=== PATIENT | male | born 1990 | race Caucasian/White ===

== ENCOUNTER 2016-09-04 18:52 | Emergency (ER) | payer SELFPAY ==
[~2016-09-04] VITALS: Ht 185.4 cm; Wt 105.0 kg
[~2016-09-04 18:52] MED LIST: NAPR500 PO
[2016-09-04 19:01] VITALS: BP 133/79; PULSE 76; RESP 16; TEMP 98.9; O2SAT 99
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
[2016-09-04] MEDS ORDERED: ROBA750T PO (20:00)
[2016-09-04] MEDS ORDERED: IBUP-232 PO (20:00)
== END 2016-09-04 20:14 | disposition home or self-care (01) ==
LOC: PHEFT 18:52
DX: S96.911A Strain of unspecified muscle and tendon at ankle and foot level, right foot, initial encounter (principal); Y93.67 Activity, basketball; F90.9 Attention-deficit hyperactivity disorder, unspecified type; F31.9 Bipolar disorder, unspecified; F17.200 Nicotine dependence, unspecified, uncomplicated
CPT/HCPCS: 99283

== ENCOUNTER 2016-12-20 18:42 | Emergency (ER) | payer SELFPAY ==
[~2016-12-20 18:42] MED LIST changes: +IBUP-232 PO; -NAPR500 PO; +ROBA750T PO
[2016-12-20 18:50] VITALS: BP 148/82; PULSE 74; RESP 18; TEMP 97.9; O2SAT 98
[2016-12-20] MEDS ORDERED: SODIUM CHLOR 0.9% 1000 ML INJ 1,000 ML IV SCH (19:00)
[2016-12-20 19:15] VITALS: BP 144/77; PULSE 68; RESP 16; O2SAT 98
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
[2016-12-20 19:50] VITALS: BP 144/77; PULSE 68; RESP 16; O2SAT 98
[2016-12-20 20:00] LABS: AUTOMATED NEUTROPHIL # 2.8 TH/MM3 (1.8-7.7); BASOPHIL # 0.1 TH/MM3 (0-0.2); BASOPHIL % 1.7 % (0.0-2.0); EOSINOPHIL # 0.2 TH/MM3 (0-0.4); EOSINOPHIL % 3.2 % (0.0-4.0); HEMATOCRIT 43.8 % (39.0-51.0); HEMO FLAGS DIFF FINAL; LYMPH % 33.5 % (9.0-44.0); LYMPHOCYTE # 1.9 TH/MM3 (1.0-4.8); MEAN CELL VOLUME 84.5 FL (80.0-100.0); MEAN CORPUSCULAR HEMOGLOBIN 28.1 PG (27.0-34.0); MEAN CORPUSCULAR HGB CONC 33.3 % (32.0-36.0); MONO % 11.1 % (0.0-8.0); NEUT % 50.5 % (16.0-70.0); PLATELET COUNT 185 TH/MM3 (150-450); RED BLOOD COUNT 5.19 MIL/MM3 (4.50-5.90); WHITE BLOOD COUNT 5.6 TH/MM3 (4.0-11.0)
[2016-12-20 20:07] LABS: CHLORIDE 103 MEQ/L (98-107); POTASSIUM 3.8 MEQ/L (3.5-5.1); SODIUM (NA) 137 MEQ/L (136-145)
[2016-12-20 20:10] LABS: ANION GAP 6 MEQ/L (5-15); BICARBONATE 28.5 MEQ/L (21.0-32.0); MAGNESIUM 2.1 MG/DL (1.5-2.5)
[2016-12-20 20:11] LABS: BLOOD UREA NITROGEN 13 MG/DL (7-18)
[2016-12-20 20:13] LABS: ALT (GPT) 30 U/L (12-78)
[2016-12-20 20:14] LABS: AST (GOT) 23 U/L (15-37); GLOMERULAR FILTRATION RATE 82 ML/MIN (>89)
[2016-12-20 20:15] LABS: TOTAL BILIRUBIN ADULT 0.4 MG/DL (0.2-1.0)
[2016-12-20 20:16] LABS: ALKALINE PHOSPHATASE 110 U/L (45-117)
[2016-12-20 20:50] VITALS: BP 141/77; PULSE 70; RESP 16; O2SAT 99
--- NOTE | 2016-12-21 09:30 | EKG ---
Date Performed: 12/20/2016 Time Performed: 18:49:55 PTAGE: 26 years EKG: Sinus rhythm WITH SINUS ARRHYTHMIA NORMAL ECG PREVIOUS TRACING : 12/19/2012 19.28 DOCTOR: Herb Brennan Interpretating Date/Time 12/21/2016 09:28:49
== END 2016-12-20 21:16 | disposition home or self-care (01) ==
LOC: PHED 18:42
DX: R07.89 Other chest pain (principal); R42 Dizziness and giddiness; I49.9 Cardiac arrhythmia, unspecified; F17.200 Nicotine dependence, unspecified, uncomplicated; Z87.39 Personal history of other diseases of the musculoskeletal system and connective tissue; Z86.59 Personal history of other mental and behavioral disorders
CPT/HCPCS: 80053; 83735; 84484; 85025; 93005; 96360; 99284; J7030

== ENCOUNTER 2017-01-04 17:26 | Emergency (ER) | payer OTHER ==
[~2017-01-04] VITALS: Ht 190.5 cm; Wt 107.0 kg
[2017-01-04 17:31] VITALS: BP 144/78; PULSE 76; RESP 16; TEMP 100.3; O2SAT 96
== END 2017-01-04 19:40 | disposition left against medical advice (07) ==
LOC: PHED 17:26 → PHEFT 19:40
DX: Z53.21 Procedure and treatment not carried out due to patient leaving prior to being seen by health care provider (principal)
CPT/HCPCS: 99281

== ENCOUNTER 2017-03-13 04:22 | Emergency (ER) | payer SELFPAY ==
[~2017-03-13] VITALS: Ht 193 cm; Wt 108.9 kg
[2017-03-13 04:35] VITALS: BP 138/86; PULSE 71; RESP 16; TEMP 98.5; O2SAT 99
[2017-03-13] MEDS ORDERED: IBUP1TAB7 PO (05:02)
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
[2017-03-13] MEDS ORDERED: IBUPROFEN 800 MG TAB PO ONE (05:15)
[2017-03-13 05:17] VITALS: BP 147/93
[2017-03-13 05:57] VITALS: RESP 16
--- NOTE | 2017-03-13 10:54 | EKG ---
Date Performed: 03/13/2017 Time Performed: 04:37:45 PTAGE: 27 years EKG: Sinus rhythm NORMAL ECG NO PREVIOUS TRACING DOCTOR: Jerel Yun Interpretating Date/Time 03/13/2017 10:52:55
== END 2017-03-13 05:17 | disposition home or self-care (01) ==
LOC: PHED 04:22
DX: R07.89 Other chest pain (principal); F17.210 Nicotine dependence, cigarettes, uncomplicated
CPT/HCPCS: 93005; 99283

== ENCOUNTER 2017-05-27 05:45 | Emergency (ER) | payer SELFPAY ==
[~2017-05-27] VITALS: Ht 193 cm; Wt 110.5 kg
[~2017-05-27 05:45] MED LIST changes: -IBUP-232 PO; +IBUP1TAB7 PO; -ROBA750T PO
[2017-05-27 05:51] VITALS: BP 156/89; PULSE 70; RESP 15; TEMP 98.4; O2SAT 99
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
--- NOTE | 2017-05-27 06:10 | RADRPT ---
EXAM DATE/TIME: 05/27/2017 06:00 [facility] COMPARISON: No previous studies available for comparison. INDICATIONS : Chest pain. MEDICAL HISTORY : None. SURGICAL HISTORY : None. ENCOUNTER: Initial ACUITY: 1 day PAIN SCORE: 4/10 LOCATION: Left chest FINDINGS: Portable AP view of the chest demonstrates a normal-sized cardiac silhouette. No effusion, consolidat ion, or pneumothorax is visualized. The bones and soft tissues demonstrate no acute abnormality. Ther e is an old healed left clavicle fracture. CONCLUSION: No acute cardiopulmonary abnormality is identified. Tadeo Underwood MD on May 27, 2017 at 6:08 Board Certified Radiologist. This report was verified electronically.
--- NOTE | 2017-05-27 15:38 | EKG ---
Date Performed: 05/27/2017 Time Performed: 05:50:44 PTAGE: 27 years EKG: Sinus rhythm NORMAL ECG INTERPRETATION BASED ON A DEFAULT AGE OF 40 YEARS Since the prior tracing, there has been no significant change PREVIOUS TRACING : 03/13/2017 04.37 DOCTOR: Lamberto Amador Interpretating Date/Time 05/27/2017 15:37:36
== END 2017-05-27 06:22 | disposition home or self-care (01) ==
LOC: PHED 05:45
DX: R07.89 Other chest pain (principal); F31.9 Bipolar disorder, unspecified; F17.210 Nicotine dependence, cigarettes, uncomplicated; Z91.030 Bee allergy status
CPT/HCPCS: 71045; 93005; 99284